=== PATIENT | female | born 2005 | race Two or more races ===

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

== ENCOUNTER 2024-10-04 12:57 | Observation (INO) | payer BC, MEDICAID ==
[~2024-10-04 12:57] MED LIST: CIPR0.3S67 OP
[2024-10-04] MEDS ORDERED: PREN27TA7 OR (13:29)
--- NOTE | 2024-10-05 07:56 | DVHDS2 ---
Physician Discharge Progress N Final Diagnosis: cramping 26wks Operations or Procedures: Operations or Procedures nst,sono Condition on Discharge: Good Disposition: Home Discharge Instructions: Diet: Regular Activity: No Restrictions, As Tolerated Medications: na Follow Up Care: Specialist: 2d Discharge Statement: "Patient was advised to return to the ER or call 911 if any headaches, dizziness, shortness of breath, chest pain, abdominal pain, bleeding, fevers, or worsening of medical condition. Patient was counseled about treatment plan, medications, possible side effects, patientverbalized understanding. All questions were answered to the best of my ability. This discharge took greater then 30 minutes in planning, reviewing documentation, counseling the patient, and discussing with other team members." Visit Coding OBGYN Date of Service: Oct 04, 2024 Billing Provider: CIARA PENDLETON DO [employer] Common Visit Codes: 17217-[id number] INP/OBS CARE (HIGH) [employer] Procedure Codes: 91818-33- NON-STRESS TEST CIARA PENDLETON DO Oct 05, 2024 07:55
== END 2024-10-04 13:52 | disposition home or self-care (01) ==
LOC: LDRP 12:57
PROVIDERS: ADMIT Obstetrics & Gynecology; ATTEND Obstetrics & Gynecology
DX: O26.892 Other specified pregnancy related conditions, second trimester (principal); R10.9 Unspecified abdominal pain; O46.92 Antepartum hemorrhage, unspecified, second trimester; Z3A.26 26 weeks gestation of pregnancy; Z79.899 Other long term (current) drug therapy
CPT/HCPCS: 81002; 94760; G0378